=== PATIENT | male | born 1970 | race Hispanic/Latino ===

== ENCOUNTER 2020-06-11 15:45 | Observation (INO) | payer OTHER ==
[~2020-06-11] VITALS: Ht 175.3 cm; Wt 98.4 kg
[2020-06-11] MEDS ORDERED: SODIUM CHLORIDE 0.9% 1000ML 1,000 ML IV STA ×2 (15:57)
[2020-06-11] MEDS ORDERED: ASPIRIN 81 MG CHEW TAB PO ONE (16:00)
--- NOTE | 2020-06-11 16:35 | Diagnostic Imaging Report ---
TECHNIQUE: Frontal view of the chest. INDICATION: ^SYNCOPE ^20200611 ^1619 COMPARISON: None DISCUSSION: Limited evaluation due to portable technique. Lines and hardware: None Heart and mediastinum: Cardiomediastinal silhouette and hilar contours are within normal limits. Lungs and pleura: No focal airspace consolidation. No pleural effusion. No pneumothorax. Soft tissues and bones: No acute abnormality. IMPRESSION: Negative for acute intrathoracic process. Signed by: Sj Silva MD on 06/11/2020 4:31 PM
--- NOTE | 2020-06-11 16:43 | Diagnostic Imaging Report ---
Exam: Head CT without contrast History: Syncope, fall Comparison studies: None Technique: Axial images were obtained from the skull base to the vertex. Coronal and sagittal images reconstructed from the axial data. Dose modulation, iterative reconstruction, and/or weight based adjustment of the mA/kV was utilized to reduce the radiation dose to as low as reasonably achievable. Findings: Scalp: No abnormalities. Bones: No fractures, blastic or lytic lesions. Brain sulci: Mildly prominent. Ventricles: Mild compensatory dilatation. No hydrocephalus. Extra-axial spaces: No masses, no fluid collection. Parenchyma: No abnormal densities. No masses, acute hemorrhage, acute or chronic vascular insults. Sellar/suprasellar region: No abnormalities. Craniocervical junction: Patent foramen magnum. No Chiari one malformation. Middle ear cavities and mastoids: Clear. Included paranasal sinuses: Clear. Incidental findings: Pneumatized middle turbinates (i.e. jhony bullosa), a normal anatomical. IMPRESSION: 1. No acute abnormalities. 2. Mild generalized parenchymal volume loss. Signed by: Dr. Jesus Cifuentes M.D. on 06/11/2020 4:40 PM
--- NOTE | 2020-06-11 16:49 | Diagnostic Imaging Report ---
History: Trauma, fall, finger Comparison studies: None Technique: Axial images were obtained through the cervical region. Coronal and sagittal images reconstructed from the axial data. Dose modulation, iterative reconstruction, and/or weight based adjustment of the mA/kV was utilized to reduce the radiation dose to as low as reasonably achievable. Intravenous contrast: None Findings: Atlantoaxial articulation: Intact. Alignment: Reversal the usual cervical lordotic curvature. Cervicomedullary junction: No abnormalities. The foramen magnum is patent. Soft tissues: No gross acute abnormalities. Vertebrae: No fractures, infection or neoplasm. Degenerative changes: Mild multilevel disc degeneration. No significant canal stenosis. Degenerative foraminal stenosis due to uncovertebral arthrosis, mild left at C3-C4, moderate right at C4-C5, mild right at C5-C6 and moderate right and mild left at C6-C7. IMPRESSION: 1. No acute cervical spine abnormalities. 2. Multilevel degenerative changes as discussed. Ligament, spinal cord and or vascular abnormalities cannot be excluded on the basis of this examination Signed by: Dr. Jesus Cifuentes M.D. on 06/11/2020 4:45 PM
[2020-06-11 17:02] LABS: BASOPHILS # (AUTO) 0.1 (0.0-0.1); BASOPHILS % 0.4 % (0.0-1.0); EOSINOPHILS # (AUTO) 0.1 (0.0-0.4); EOSINOPHILS % 0.3 % (0.0-6.0); HEMATOCRIT 46.6 % (38.2-49.6); HEMOGLOBIN 15.6 g/dL (14.0-18.0); LYMPHOCYTES # (AUTO) 1.9 (1.0-3.2); LYMPHOCYTES % 10.3 % (18.0-39.1); MEAN CORPUSCULAR HEMOGLOBIN 27.2 pg (28-32); MEAN CORPUSCULAR HGB CONC 33.5 g/dL (31-35); MEAN CORPUSCULAR VOLUME 81.2 fL (81-99); MONOCYTES # (AUTO) 1.5 (0.2-0.8); MONOCYTES % 8.5 % (4.4-11.3); NEUTROPHILS # (AUTO) 14.4 (2.1-6.9); NEUTROPHILS % 79.8 % (38.7-80.0); PLATELET COUNT 384 x10e3/uL (140-360); RED BLOOD COUNT 5.74 x10e6/uL (4.3-5.7); RED CELL DISTRIBUTION WIDTH 14.7 % (11.7-14.4)
[2020-06-11 17:41] LABS: INR 0.95; PARTIAL THROMBOPLASTIN TIME 24.1 seconds (23.8-35.5); PROTHROMBIN TIME 13.1 seconds (11.9-14.5)
[2020-06-11 17:44] LABS: ALBUMIN 4.5 g/dL (3.5-5.0)
[2020-06-11] MEDS ORDERED: MORPHINE SULFATE 2 MG/ML SYR 1ML IV PRN (17:45)
[2020-06-11] MEDS ORDERED: ONDANSETRON HCL INJ 2MG/ML 2ML 2 MG/ML VIAL IV PRN (17:45)
[2020-06-11 17:48] LABS: ALBUMIN/GLOBULIN RATIO 1.7 (0.8-2.0); ANION GAP 19.4 mmol/L (8-16); CALCIUM 9.4 mg/dL (8.4-10.2); CREATININE, SERUM 2.16 mg/dL (0.72-1.25); MAGNESIUM 2.1 MG/DL (1.3-2.1); POTASSIUM 4.4 mmol/L (3.5-5.1)
--- OUTSIDE RECORDS SUMMARY | 2020-06-11 17:54 | XMS REPORT | Continuity of Care Document ---
Author Author [facility] t Organization [facility] Address [address] [place] [id number] Phone Unavailable Care Team Providers Care Tobacco Prevention Health Educator Name Role Phone Gela BUTLER Attphys Unavailable Problems This patient has no known problems. Allergies, Adverse Reactions, Alerts This patient has no known allergies or adverse reactions. Medications This patient has no known medications. Procedures This patient has no known procedures. Results Test Description Test Time Test Comments Results Result Comments Source CT CERVICAL SPINE WO 2020-06-11 16:40:[address] [address] Patient Name: DARREN BRO MR #: [id number] : 1970 Age/Sex: 49/M Req #: [id number] Adm Physician: Ordered by: KRISTINE BUTLER MD Report #: [id number] Location: ER Room/Bed: Procedure: [id number] CT/CT CERVICAL SPINE WO Exam Date: 06/11/20 Exam Time: 1612 REPORT STATUS: Signed History: Trauma, fall, finger Comparison studies: None Technique: Axial images were obtained through the cervical region. Coronal and sagittal images reconstructed from the axial data. Dose modulation, iterative reconstruction, and/or weight based adjustm ent of the mA/kV was utilized to reduce the radiation dose to as low as reasonably achievable. Intravenous contrast: None Findings: Atlantoaxial articulation: Intact. Alignment: Reversal the usual cervical lordotic curvature. Cervicomedullary junction: No abnormalities. The foramen magnum is patent. Soft tissues: No gross acute abnormalities. Vertebrae: No fractures, infection or neoplasm. Degenerative changes: Mild multilevel disc degeneration. No significant canal stenosis. Degenerative foraminal stenosis due to uncovertebral arthrosis, mild left at C3-C4, moderate right at C4-C5, mild right at C5-C6 and moderate right and mild left at C6-C7. IMPRESSION: 1. No acute cervical spine abnormalities. 2. Multilevel degenerative changes as discussed. Ligament, spinal cord and or vascular abnormalities cannot be excluded on the basis of this examination Signed by: Dr. Kamryn Cifuentes M.D. on 06/11/2020 4:45 PM Dictated By: KAMRYN CIFUENTES MD 44 Transcribed By: ANA on 06/11/201644 COPY TO: KRISTINE BUTLER MD CT BRAIN WO 2020-06-11 16:36:00 [place] [address] Patient Name: DARREN BRO MR #: [id number] : 1970 Age/Sex: 49/M Req #: [id number] Adm Physician: Ordered by: KRISTINE BUTLER MD Report #: [id number] Location: Room/Bed: Procedure: [id number] CT/CT BRAIN WO Exam Date: 06/11/20 Exam Time: 1612 REPORT STATUS: Signed Exam: Head CT without contrast History: Syncope, fall Comparison studies: None Technique: Axial images were obtained from the skull base to the vertex. Coronal and sagittal images reconstructed from the axial data. Dose modulation, iterative reconstruction, and/or weight based adjustment of the mA/kV was utilized to reduce the radiation dose to as low as reasonably achievable. Findings: Scalp: No abnormalities. Bones: No fractures, blastic or lytic lesions. Brain sulci: Mildly prominent. Ventricles: Mild compensatory dilatation. No hydrocephalus. Extra-axial spaces: No masses, no fluid collection. Parenchyma: No abnormal densities. No masses, acute hemorrhage, acute or chronic vascular insults. Sellar/suprasellar region: No abnormalities. Craniocervical junction: Patent foramen magnum. No Chiari one malformation. Middle ear cavities and mastoids: Clear. Included paranasal sinuses: Clear. Incidental findings: Pneumatized middle turbinates (i.e. jhony bullosa), a normal anatomical. IMPRESSION: 1. No acute abnormalities. 2. Mild generalized parenchymal volume loss. Signed by: Dr. Kamryn Cifuentes M.D. on 06/11/2020 4:40 PM Dictated By: KAMRYN CIFUENTES MD 1640 Transcribed By: ANA on 06/11/20 1640 COPY TO: KRISTINE BUTLER MD CHEST SINGLE (PORTABLE) 2020-06-11 16:30:00 [place] [address] Patient Name: DARREN BRO MR #: [id number] : 1970 Age/Sex: 49/M Req #: [id number] Adm Physician: Ordered by: KRISTINE BUTLER MD Report #: [id number] Location: ER Room/Bed: Procedure: [id number] DX/CHEST SINGLE (PORTABLE) Exam Date: 06/11/20 Exam Time: 1618 REPORT STATUS: Signed TECHNIQUE: Frontal view of the chest. INDICATION: SYNCOPE 20200611 COMPARISON: None DISCUSSION: Limited evaluation due to portable technique. Lines and hardware: None Heart and mediastinum: Cardiomediastinal silhouette and hilar contours are within normal limits. Lungs and pleura: No focal airspace consolidation. No pleural effusion. No pneumothorax. Soft tissues and bones: No acute abnormality. IMPRESSION: Negative for acute intrathoracic process. Signed by: Samir Silva MD on 06/11/2020 4:31 PM Dictated By: SAMIR SILVA MD 1631 Transcribed By: ANA on 06/11/20 1631 COPY TO: KRISTINE BUTLER MD
[2020-06-11 17:55] LABS: CREATINE KINASE MB 1.9 ng/mL (0-5.0)
--- NOTE | 2020-06-11 18:08 | Emergency Department Note ---
History of Present Illnes History of Present Illness Chief Complaint: General Medicine Complaints History of Present Illness This is a 49 year old male in heat all day working. went to restroom, stood to finish, awoke and found himself on floor. +syncope. 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 pt aaox4. ambulatory. no c-spine point tenderness. no cp no sob. Historian: Patient Arrival Mode: Car Environmental Resource Specialist Required: No Onset (how long ago): hour(s) Radiation: Reports non-radiation Severity: moderate Onset quality: sudden Chronicity: new Context: Denies recent illness Relieving factors: none Exacerbating factors: none Associated symptoms: Reports denies other symptoms Treatments prior to arrival: none Past Medical/Family History Physician Review I have reviewed the patient's past medical and family history. Any updates have been documented here. Past Medical History Recent Fever: No Clinical Suspicion of Infectio: No New/Unexplained Change in Ment: No Past Medical History: Hypertension, Hyperlipedemia Other Surgery: sinus Social History Smoking Cessation: Never Smoker Counseling Performed: No Alcohol Use: None Any Illegal Drug Use: No TB Exposure/Symptoms: No Physically hurt or threatened: No Family History Family history of heart diseas: No Other Any Pre-Existing Lines (PICC,: No Review of Systems Review of Systems Constitutional: Reports no symptoms EENTM: Reports no symptoms Cardiovascular: Reports as per HPI, Reports syncope Respiratory: Reports no symptoms Gastrointestinal: Reports no symptoms Genitourinary: Reports no symptoms Musculoskeletal: Reports no symptoms Integumentary: Reports no symptoms Neurological: Reports no symptoms Psychological: Reports no symptoms Endocrine: Reports no symptoms Hematological/Lymphatic: Reports no symptoms Physical Exam Related Data Allergies: Coded Allergies: No Known Allergies (Unverified , 06/11/20) Triage Vital Signs Vital Signs Date Time Temp Pulse Resp B/P (MAP) Pulse Ox O2 Delivery O2 Flow Rate FiO2 06/11/20 15:54 97.9 106 16 112/66 100 Room Air Vital signs reviewed: Yes Physical Exam CONSTITUTIONAL Constitutional: Present well-developed, Present well-nourished HENT HENT: Present normocephalic, Present atraumatic, Present mucosae dry, Present nose normal HENT L/R: Present left ext ear normal, Present right ext ear normal EYES Eyes: Reports PERRL, Reports conjunctivae normal NECK Neck: Present ROM normal PULMONARY Pulmonary: Present effort normal, Present breath sounds normal CARDIOVASCULAR Cardiovascular: Present regular rhythm, Present heart sounds normal, Present capillary refill normal, Present tachycardia GASTROINTESTINAL Abdominal: Present soft, Present nontender, Present bowel sounds normal GENITOURINARY Genitourinary: Present exam deferred SKIN Skin: Present warm, Present dry MUSCULOSKELETAL Musculoskeletal: Present ROM normal NEUROLOGICAL Neurological: Present alert, Present oriented x 3, Present no gross motor or sensory deficits PSYCHOLOGICAL Psychological: Present mood/affect normal, Present judgement normal Results Laboratory Result Diagram: 06/11/20 1640 06/11/20 1720 Laboratory Laboratory Tests Test 06/11/20 17:20 06/11/20 16:40 Prothrombin Time 13.1 seconds (11.9-14.5) Prothromb Time International Ratio 0.95 Activated Partial Thromboplast Time 24.1 seconds (23.8-35.5) Sodium Level 140 mmol/L (136-145) Potassium Level 4.4 mmol/L (3.5-5.1) Chloride Level 103 mmol/L (98-107) Carbon Dioxide Level 22 mmol/L (22-29) Anion Gap 19.4 mmol/L (8-16) Blood Urea Nitrogen 24 mg/dL (7-26) Creatinine 2.16 mg/dL (0.72-1.25) Estimat Glomerular Filtration Rate 33 ML/MIN (60-) BUN/Creatinine Ratio 11 (6-25) Glucose Level 105 mg/dL (74-118) Calcium Level 9.4 mg/dL (8.4-10.2) Magnesium Level 2.1 MG/DL (1.3-2.1) Total Bilirubin 0.4 mg/dL (0.2-1.2) Aspartate Amino Transf (AST/SGOT) 27 IU/L (5-34) Alanine Aminotransferase (ALT/SGPT) 47 IU/L (0-55) Alkaline Phosphatase 57 IU/L (40-150) Creatine Kinase 232 IU/L (30-200) Creatine Kinase MB 1.90 ng/mL (0-5.0) Troponin I 0.015 ng/mL (0-0.300) Total Protein 7.2 g/dL (6.5-8.1) Albumin 4.5 g/dL (3.5-5.0) Globulin 2.7 g/dL (2.3-3.5) Albumin/Globulin Ratio 1.7 (0.8-2.0) White Blood Count 18.04 x10e3/uL (4.8-10.8) Red Blood Count 5.74 x10e6/uL (4.3-5.7) Hemoglobin 15.6 g/dL (14.0-18.0) Hematocrit 46.6 % (38.2-49.6) Mean Corpuscular Volume 81.2 fL (81-99) Mean Corpuscular Hemoglobin 27.2 pg (28-32) Mean Corpuscular Hemoglobin Concent 33.5 g/dL (31-35) Red Cell Distribution Width 14.7 % (11.7-14.4) Platelet Count 384 x10e3/uL (140-360) Neutrophils (%) (Auto) 79.8 % (38.7-80.0) Lymphocytes (%) (Auto) 10.3 % (18.0-39.1) Monocytes (%) (Auto) 8.5 % (4.4-11.3) Eosinophils (%) (Auto) 0.3 % (0.0-6.0) Basophils (%) (Auto) 0.4 % (0.0-1.0) Neutrophils # (Auto) 14.4 (2.1-6.9) Lymphocytes # (Auto) 1.9 (1.0-3.2) Monocytes # (Auto) 1.5 (0.2-0.8) Eosinophils # (Auto) 0.1 (0.0-0.4) Basophils # (Auto) 0.1 (0.0-0.1) Absolute Immature Granulocyte (auto 0.13 x10e3/uL (0-0.1) D-Dimer Quantitative (PE/DVT) 193 ng/mL (0-400) Lab results reviewed: Yes Imaging Imaging results reviewed: Yes Procedures 12 Lead ECG Interpretation ECG Interpretation : ECG: ECG 1 Environmental Resource Specialist: Interpreted by ED physician Date: Jun 11, 2020 Time: 15:50 Rhythm: sinus tachycardia Rate: tachycardia (108) QRS axis: normal ST segments normal: Yes T waves normal: Yes Clinical Impression: abnormal ECG Assessment & Plan Medical Decision Making MDM syncope likely due to dehydration, heat exhaustion but has cardiac risk factors - cbc, chem, ecg, cardiacs, d-dimer, bnp, ct brain/c-spine - r/o stemi, nstemi, PE, dehydration, rhabdomyolysis, renal insuff, electrolyte abnl, cerebral bleed, cerv fx Reassessment Reassessment admit to Dr Colon Assessment & Plan Final Impression: (1) Syncope and collapse (2) Dehydration (3) Renal insufficiency Depart Disposition: ADMITTED Last Vital Signs Date Time Temp Pulse Resp B/P (MAP) Pulse Ox O2 Delivery O2 Flow Rate FiO2 06/11/20 17:50 89 18 108/69 100 Room Air 06/11/20 15:54 97.9 Medications in the ED Sodium Chloride 1,000 ml @ 0 mls/hr Q0M STAT IV Last administered on 06/11/20at 16:46; Admin Dose 999 MLS/HR; Start 06/11/20 at 15:57; Stop 06/11/20 at 16:02; Status DC Aspirin 81 mg PRN ONCE PO ; Start 06/11/20 at 16:00; Stop 06/11/20 at 16:02; Status DC Sodium Chloride 1,000 ml @ 0 mls/hr Q0M STAT IV Last administered on 06/11/20at 16:46; Admin Dose 999 MLS/HR; Start 06/11/20 at 15:57; Stop 06/11/20 at 16:02; Status DC Morphine Sulfate 2 mg Q3H PRN IV MODERATE PAIN (4-6); Start 06/11/20 at 17:45; Stop 06/18/20 at 17:44 Ondansetron HCl 4 mg Q4H PRN IV NAUSEA AND VOMITING; Start 06/11/20 at 17:45; Stop 07/11/20 at 17:44 Sodium Chloride 1,000 ml @ 150 mls/hr Q6H40M IV ; Start 06/11/20 at 17:45; Stop 07/11/20 at 17:44 KRISTINE BUTLER MD Jun 11, 2020 18:08
[2020-06-11] MEDS: FAMOTIDINE 20 MG/2 ML VIAL IV SCH (20:12)
[2020-06-11] MEDS: SODIUM CHLORIDE 0.9% 1000ML 1,000 ML IV SCH (20:12)
[2020-06-11] MEDS ORDERED: LISINOPRIL-HCT1 EACH (21:19)
[2020-06-11 21:40] VITALS: BP 122/77
[2020-06-11 21:45] LABS: BILIRUBIN,URINE NEGATIVE (NEGATIVE); CLARITY,URINE CLEAR (CLEAR); COLOR,URINE YELLOW (YELLOW); KETONES,URINE NEGATIVE (NEGATIVE); LEUKOCYTE ESTERASE ,URINE TRACE (NEGATIVE); NITRITE,URINE NEGATIVE (NEGATIVE); PROTEIN,URINE DIPSTICK NEGATIVE (NEGATIVE); URINE UROBILINOGEN 0.2 mg/dL (0.2 - 1)
[2020-06-11 21:59] LABS: BACTERIA,URINE FEW /HPF; RBC,URINE 0-5 /HPF (0-5)
[2020-06-11 22:00] LABS: AMORPHOUS SEDIMENT,URINE MODERATE (FEW); MUCUS,URINE MODERATE (RARE)
[2020-06-11 22:20] VITALS: BP 122/77
[2020-06-11 22:25] VITALS: BP 122/77
--- NOTE | 2020-06-11 22:35 | NUR ---
RECEIVED PATIENT FROM ER IN STABLE CONDITION, NO SIGNS OF DISTRESS NOTED. IV FLUIDS ARE RUNNING AT ORDERED RATE AND PATIENT VOICES NO PAIN AT THIS TIME. BED IS IN LOWEST POSITION, BOTH SIDE RAILS ARE UP, CALL LIGHT IS WITHIN EASY REACH, WILL CONTINUE TO MONITOR.
[2020-06-12 00:23] LABS: CREATINE KINASE 229 IU/L (30-200)
[2020-06-12 00:30] VITALS: BP 119/85
[2020-06-12] MEDS: SODIUM CHLORIDE 0.9% 1000ML 1,000 ML IV SCH ×4 (02:33→13:45)
[2020-06-12 04:55] VITALS: BP 109/70
[2020-06-12] MEDS: FAMOTIDINE 20 MG/2 ML VIAL IV SCH (05:53)
[2020-06-12 06:43] LABS: BASOPHILS % 0.4 % (0.0-1.0); EOSINOPHILS # (AUTO) 0.1 (0.0-0.4); EOSINOPHILS % 1.3 % (0.0-6.0); HEMATOCRIT 39.4 % (38.2-49.6); HEMOGLOBIN 12.9 g/dL (14.0-18.0); LYMPHOCYTES # (AUTO) 2.2 (1.0-3.2); LYMPHOCYTES % 21.7 % (18.0-39.1); MEAN CORPUSCULAR HGB CONC 32.7 g/dL (31-35); MEAN CORPUSCULAR VOLUME 82.6 fL (81-99); MONOCYTES % 9.9 % (4.4-11.3); NEUTROPHILS # (AUTO) 6.6 (2.1-6.9); NEUTROPHILS % 66.3 % (38.7-80.0); PLATELET COUNT 273 x10e3/uL (140-360); RED BLOOD COUNT 4.77 x10e6/uL (4.3-5.7); RED CELL DISTRIBUTION WIDTH 14.4 % (11.7-14.4)
--- NOTE | 2020-06-12 07:00 | NUR ---
BEDSIDE SBAR REPORT RECEIVED FROM NERY CHAN, PM SHIFT. PT FOUND RESTING IN BED IN NO ACUTE DISTRESS. PT IS ABLE TO MAKE NEEDS KNOWN AND DENIES ANY NEEDS AT THIS TIME. PT WAS EDUCATED ON FALL RISK PRECAUTIONS AND VERBALIZED UNDERSTANDING. CALL LIGHT AND BELONGINGS NEARBY. WILL CONTINUE TO MONITOR.
[2020-06-12 07:08] LABS: ALANINE AMINOTRANSFERASE 39 IU/L (0-55); ALBUMIN 4.1 g/dL (3.5-5.0); ALBUMIN/GLOBULIN RATIO 1.7 (0.8-2.0); ALKALINE PHOSPHATASE 60 IU/L (40-150); ANION GAP 14.2 mmol/L (8-16); BLOOD UREA NITROGEN 16 mg/dL (7-26); BUN/CREATININE RATIO 18 (6-25); CALCIUM 8.4 mg/dL (8.4-10.2); CARBON DIOXIDE 23 mmol/L (22-29); CHLORIDE 107 mmol/L (98-107); CHOL/HDL RATIO 5.5 (3.9-4.7); CHOLESTEROL 215 MD/DL (0-199); EST GLOMERULAR FILTRATION RATE > 60 ML/MIN (60-); GLUCOSE 101 mg/dL (74-118); HDL CHOLESTEROL 39 MG/DL (40-60); LDL CHOLESTEROL 148 MG/DL (60-130); POTASSIUM 4.2 mmol/L (3.5-5.1); SODIUM 140 mmol/L (136-145); TRIGLYCERIDES 141 MG/DL (0-149)
[2020-06-12 07:37] LABS: CREATINE KINASE 234 IU/L (30-200)
[2020-06-12 08:00] VITALS: BP 107/70
[2020-06-12 09:00] VITALS: BP 107/70
[2020-06-12] MEDS: ASPIRIN 81 MG ENTERIC COATED PO SCH ×2 (09:00→09:30)
[2020-06-12 12:00] VITALS: BP 121/73
[2020-06-12 16:00] VITALS: BP 135/81
[2020-06-12] MEDS ORDERED: ACETAMINOPHEN 325 MG TAB PO PRN (16:15)
[2020-06-12] MEDS ORDERED: HYDRALAZINE HCL 20 MG/ML VIAL IV PRN (16:15)
[2020-06-12] MEDS ORDERED: POLYETHYLENE GLYCOL 3350 17 GM PACK PO PRN (16:15)
[2020-06-12] MEDS ORDERED: DOCUSATE SODIUM 100 MG CAP PO SCH (17:00)
[2020-06-12] MEDS ORDERED: ASPIRIN EC81 MG PO (17:31)
[2020-06-12] MEDS ORDERED: COLACE100 MG PO (17:31)
[2020-06-12] MEDS ORDERED: ONDANSETRON HCL 4 MG ORAL DISINTEGRATING TAB PO PRN (18:00)
[2020-06-12] MEDS ORDERED: FAMOTIDINE 20 MG TAB PO SCH (18:00)
--- NOTE | 2020-06-12 18:20 | NUR ---
PATIENT DISCHARGED HOME VIA PRIVATE VEHICLE. PERIPHERAL IV WAS DISCONTINUED; CATHETER INTACT WITHOUT RESISTANCE; DRY DRESSING APPLIED. PT RECEIVED DISCHARGE SUMMARY, PRESCRIPTIONS, AND EDUCATION LEAFLETS. PT VERBALIZED UNDERSTANDING.
--- NOTE | 2020-06-12 18:39 | History and Physical ---
PRIMARY CARE PHYSICIAN: Does not have a PCP. CONSULTING PHYSICIANS: None. OUTPATIENT EAR MACHINE OPERATOR: Dr. Alverto Banda. CHIEF COMPLAINT: Passed out. HISTORY OF PRESENT ILLNESS: The patient is a 49-year-old male, admitted via the emergency department, who was in heat all day working and went to the restroom, stood up to finish, awoke and found himself on the floor. He did have syncope, now awake, alert, and oriented x4. He is ambulatory without spine tenderness. He was admitted about 3 p.m. on 06/11, had several liters of fluid in the emergency department. The patient's nurse, Saida states that he was COVID tested twice in March and once in April, they were all negative. 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 PAST MEDICAL HISTORY: Hypertension and hyperlipidemia. PAST SURGICAL HISTORY: Sinus surgery. FAMILY HISTORY: Father had prostate cancer, which metastasized to the pancreas. Mother had hyperlipidemia. SOCIAL HISTORY: Denies any previous use of tobacco, alcohol, or illicit drugs. 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 Denies use of assistive device for ambulation. ALLERGIES: NO KNOWN ALLERGIES. HOME MEDICATIONS: Lisinopril 20 mg daily and atorvastatin. REVIEW OF SYSTEMS: CONSTITUTIONAL: The patient reports recent weight gain. Denies fever or chills. EYES: White dots at the eyes yesterday. GASTROINTESTINAL: Mild nausea yesterday. Regular bowel movements. MUSCULOSKELETAL: No complaints of muscle or joint pain. NEUROLOGIC: Headache and dizziness yesterday, none now. ENDOCRINE: Denies history of diabetes. A 14-point review of systems was completed and the patient denies any problems with the following systems; ears, nose, throat, respiratory, genitourinary, psychiatric, cardiovascular, musculoskeletal, endocrine, allergic/immunological, and hematologic/lymphatic. PHYSICAL EXAMINATION: VITAL SIGNS: Temperature 97.7, pulse 66, blood pressure 109/70, respirations 20, and oxygen saturation 98% on room air. Height 5 feet 9 inches, weight 213 pounds, BMI 31.45. GENERAL: Supine, no acute distress. His is at the bedside. LUNGS: Clear to auscultation. Respiratory pattern even and unlabored. HEENT: EOMI. NECK: Supple. No lymphadenopathy, thyromegaly, or JVD. CARDIOVASCULAR: Regular rate and rhythm. No murmur. He has normal saline infusing at 150 mL an hour into a peripheral IV. ABDOMEN: Bowel sounds positive. Soft and nontender. No distention. No guarding. EXTREMITIES: With no pitting edema. No clubbing, cyanosis, or marked swelling. NEUROLOGICAL: GCS 15. Nonfocal. DIAGNOSTIC AND LABORATORY DATA: Sodium 140, potassium 4.2, chloride 107, CO2 23, BUN 16, creatinine 0.9, and glucose 101. WBCs 9.91, hemoglobin 12.9, hematocrit 39.4, and platelets 273. PT 13.1, PTT 24.1, and INR 0.95. T-bilirubin 0.6, AST 21, ALT 39, and alkaline phosphatase 60. Estimated GFR greater than 60. Magnesium 2.1. CK 232, then 229, then 234. Urinalysis showed trace amount of leukocyte esterase, moderate amount of amorphous sediment, moderate amount of mucus on 06/11. COVID test was collected and is pending. Urine culture and sensitivity shows re-incubation is required. Chest x-ray showed mild generalized parenchymal volume loss. A 12-lead ECG showed sinus tachycardia with heart rate of 108. CT of the brain, CT of the C-spine, and chest x-ray were all negative. ASSESSMENT AND PLAN: 1. Syncope and collapse. Treat underlying cause. The patient likely had syncope from severe dehydration. We will finish current bag of IV fluids before discharging home. 2. Dehydration with heat exhaustion, improving. 3. Dehydration with heat exhaustion, improving. Continue IV fluids of normal saline. We will go ahead and complete this bag before discharging him home. Yesterday, BUN 24, creatinine 2.16, estimated GFR 33. 4. Hypotension with history of hypertension, hypotension likely due to volume loss. Continue IV fluids. 5. Sinus tachycardia, resolved. Heart rate currently within normal limits. Tachycardia likely due to dehydration. Monitor. 6. Hyperlipidemia. Triglycerides 141, cholesterol 215, LDL 148, HDL 39, and cholesterol HDL ratio 5.5. 7. Obesity with BMI of 31.45. Dietary restrictions. Observation, billing code [id number], time spent 60 minutes. Dictated by Arias Ritchie, JEAN Torey Colon MD HWP/MODL /[id number]
[2020-06-12] MEDS ORDERED: TEMAZEPAM 15 MG CAP PO PRN (21:00)
== END 2020-06-12 20:04 | disposition home or self-care (01) ==
LOC: ER 15:53 → ERHOLD 17:51 → MED/SURG3 20:58
PROVIDERS: ADMIT Internal Medicine; ATTEND Internal Medicine
DX: E86.0 Dehydration (principal); X30.XXXA Exposure to excessive natural heat, initial encounter; R00.0 Tachycardia, unspecified; I95.9 Hypotension, unspecified; I10 Essential (primary) hypertension; E66.9 Obesity, unspecified; Z68.31 Body mass index [BMI] 31.0-31.9, adult; E78.5 Hyperlipidemia, unspecified; Z11.59 Encounter for screening for other viral diseases; N17.9 Acute kidney failure, unspecified
CPT/HCPCS: 36415 ×2; 70450; 71045; 72125; 80053 ×2; 80061; 81001; 82550 ×2; 82553 ×2; 83735; 83880; 84484 ×2; 85025 ×2; 85379; 85610; 85730; 87086; 93005; 99284; G0378 ×2; J7030 ×2; U0002